=== PATIENT | female | born 1990 | race American Indian/Alaskan Native ===

== ENCOUNTER 2020-08-04 21:38 | Emergency (ER) | payer SELFPAY ==
[2020-08-04 23:17] VITALS: BP 140/84
--- NOTE | 2020-08-05 00:22 | Emergency Department Report ---
ED General Adult HPI - General Chief complaint: Urogenital-Female Stated complaint: RT BREAST SWELLING/BLOODY FLUID Source: patient Mode of arrival: Ambulatory Limitations: No Limitations - History of Present Illness Initial comments: Patient is a 29-year-old -[place] female with past medical history of hypertension who presents to the ED with complaint of acute onset persistent right breast pain around the areolar area with purulent discharge and mild erythematous maculopapular rash for the last 3 days. Patient states that the pain radiates to the right axilla persistently since the onset. Patient denies fever, chills, nausea, vomiting, dizziness, syncope, chest pain, shortness of breath, cough, sore throat, headache, traumatic injury, numbness and tingling or weakness of upper extremities bilaterally or back pain. MD Complaint: Right breast pain, swollen mild erythematous rash -: Sudden, days(s) (3) Location: chest (right breast) Radiation: non-radiation Severity scale (0 -10): 6 Quality: aching, sharp Consistency: constant Improves with: none Worsens with: none Associated Symptoms: denies other symptoms, rash (Mildly erythematous maculopapular rash on right breast areola). denies: confusion, chest pain, cough, diaphoresis, fever/chills, loss of appetite, malaise, nausea/vomiting, seizure, shortness of breath, syncope, weakness Treatments Prior to Arrival: none - Related Data Previous Rx's Medication Instructions Recorded Last Taken Type Ibuprofen [Motrin] 800 mg PO Q8HR PRN #30 tablet 08/05/20 Unknown Rx Sulfamethoxazole/Trimethoprim 1 each PO Q12H #20 tablet 08/05/20 Unknown Rx [Bactrim DS TAB] ED Review of Systems ROS: Stated complaint: RT BREAST SWELLING/BLOODY FLUID Other details as noted in HPI Constitutional: denies: chills, fever Eyes: denies: eye pain, eye discharge, vision change ENT: denies: ear pain, throat pain Respiratory: denies: cough, shortness of breath, wheezing Cardiovascular: other (Right breast pain due to erythematous maculopapular rash with purulent discharge). denies: chest pain, palpitations Endocrine: no symptoms reported Gastrointestinal: denies: abdominal pain, nausea, diarrhea Genitourinary: denies: urgency, dysuria, discharge Musculoskeletal: denies: back pain, joint swelling, arthralgia Skin: rash (Mild erythematous rash on right breast areola with purulent discharge). denies: lesions Neurological: denies: headache, weakness, paresthesias Psychiatric: denies: anxiety, depression Hematological/Lymphatic: denies: easy bleeding, easy bruising ED Past Medical Hx - Past Medical History Hx Hypertension: Yes - Surgical History Past Surgical History?: Yes Additional Surgical History: c-sect x2, fallopian and ovary removal, L knee x3. - Social History Smoking Status: Never Smoker Substance Use Type: None - Medications Home Medications: Home Medications Medication Instructions Recorded Confirmed Last Taken Type Ibuprofen [Motrin] 800 mg PO Q8HR PRN #30 tablet 08/05/20 Unknown Rx Sulfamethoxazole/Trimethoprim 1 each PO Q12H #20 tablet 08/05/20 Unknown Rx [Bactrim DS TAB] ED Physical Exam - General Limitations: No Limitations General appearance: alert, in no apparent distress - Head Head exam: Present: atraumatic, normocephalic, normal inspection - Eye Eye exam: Present: normal appearance, PERRL, EOMI Pupils: Present: normal accommodation - ENT ENT exam: Present: normal exam, normal orophraynx, mucous membranes moist, TM's normal bilaterally, normal external ear exam - Neck Neck exam: Present: normal inspection, full ROM - Respiratory Respiratory exam: Present: normal lung sounds bilaterally, chest wall tenderness (Palpable mild right breast tenderness due to mildly erythematous maculopapular nonfluctuant rash around the areola). Absent: respiratory distress, wheezes, rales, rhonchi, accessory muscle use, decreased breath sounds, prolonged expiratory - Cardiovascular Cardiovascular Exam: Present: regular rate, normal rhythm, normal heart sounds. Absent: systolic murmur, diastolic murmur, rubs, gallop - GI/Abdominal GI/Abdominal exam: Present: soft, normal bowel sounds. Absent: tenderness, guarding, hyperactive bowel sounds, hypoactive bowel sounds, organomegaly - Bi-manual exam: Present: other (Female RN chorus dancer Ms. Hart present during the breast exam; characterized by mildly erythematous and fluctuant maculopapular rash on right areola) - Extremities Exam Extremities exam: Present: normal inspection, full ROM, normal capillary refill - Back Exam Back exam: Present: normal inspection, full ROM. Absent: tenderness, CVA tenderness (R), CVA tenderness (L), muscle spasm, paraspinal tenderness, vertebral tenderness - Neurological Exam Neurological exam: Present: alert, oriented X3, CN II-XII intact, normal gait, reflexes normal - Psychiatric Psychiatric exam: Present: normal affect, normal mood - Skin Skin exam: Present: warm, dry, intact, rash (Mild erythematous maculopapular nonfluctuant rash on right areola with localized tenderness), erythema, other (Female RN chorus dancer Ms. Hart present during the breast exam) ED Course Vital Signs 08/04/20 23:05 Temperature 98.3 F Pulse Rate 95 H Respiratory 16 Rate Blood Pressure 140/84 O2 Sat by Pulse 100 Oximetry ED Medical Decision Making - Medical Decision Making This is a 29-year-old -[place] female with past medical history of hypertension who presents to the ED with complaint of acute onset persistent right breast pain around the areolar area with purulent discharge and mild er ythematous maculopapular rash for the last 3 days. Patient states that the pain radiates to the right axilla persistently since the onset. In the ED, patient is alert and oriented x3 and is not in any distress. Based on the history and physical exam findings, patient symptoms are likely due to mild cellulitis of the right breast versus fibrocystic breast disease. Patient was therefore discharged home on pain medications and empirically given a prescription of antibiotics for suspected cellulitis. Patient was advised return to the ED immediately if symptoms get worse, otherwise follow-up with her [facility] physician or primary care physician in 7 to 10 days for reevaluation. - Differential Diagnosis Cellulitis; mastitis; cutaneous abscess; fibrocystic breast disease Critical care attestation.: If time is entered above; I have spent that time in minutes in the direct care of this critically ill patient, excluding procedure time. ED Disposition Clinical Impression: Acute mastitis of right breast, Cellulitis of right breast Fibrocystic breast disease (FCBD) in female Qualifiers: Laterality: right Qualified Code(s): N60.11 - Diffuse cystic mastopathy of right breast Disposition: DC-01 TO HOME OR SELFCARE Is pt being admited?: No Does the pt Need Aspirin: No Condition: Stable Instructions: Breast Self-Awareness, [id number], Mastitis, [id number], Cellulitis, Adult, [id number], Fibrocystic Breast Changes, [id number] Additional Instructions: Take medications with food, drink plenty of fluids and follow up with your Primary Care Physician in 7-10 days for reevaluation. Return to the ED immediately if symptoms get worse. Prescriptions: Sulfamethoxazole/Trimethoprim [Bactrim DS TAB] 1 each PO Q12H #20 tablet Ibuprofen [Motrin] 800 mg PO Q8HR PRN #30 tablet PRN Reason: Pain , Severe (7-10) Referrals: [facility] [Provider Group] - 7-10 days Time of Disposition: 00:21 Print Language: CYMRAES
== END 2020-08-05 00:28 | disposition home or self-care (01) ==
LOC: ED 21:38
DX: N61.0 Mastitis without abscess (principal); N60.11 Diffuse cystic mastopathy of right breast; I10 Essential (primary) hypertension; Z98.890 Other specified postprocedural states; Z79.899 Other long term (current) drug therapy
CPT/HCPCS: 99282

== ENCOUNTER 2021-03-28 19:57 | Emergency (ER) | payer BC ==
--- NOTE | 2021-03-28 23:40 | Emergency Department Report ---
ED General Adult HPI - General Chief complaint: High BP Stated complaint: HYPERTENSION Time Seen by Provider: 03/28/21 23:26 Source: patient Mode of arrival: Ambulatory Limitations: No Limitations - History of Present Illness Initial comments: Patient is a 30-year-old female with a history of hypertension who presents for medication refill states has been out of her BP medicines for 2 months. Patient has primary care appointment for April 22 but is requesting refill today. His description of his hydrochlorothiazide patient states she felt symptoms today intermittent headache some dizziness as it is cervical symptoms when her blood pressure is elevated. BP today was 169/99. She denies dizziness, headache, shortness of breath, chest pain, nausea or vomiting. Patient denies other symptoms. Patient was seen [facility]UC[facility] SPECIALIST yesterday and advised to restart medications. - Related Data Previous Rx's Medication Instructions Recorded Last Taken Type Ibuprofen [Motrin] 800 mg PO Q8HR PRN #30 tablet 08/05/20 Unknown Rx Sulfamethoxazole/Trimethoprim 1 each PO Q12H #20 tablet 08/05/20 Unknown Rx [Bactrim DS TAB] hydroCHLOROthiazide [HCTZ] 25 mg PO QDAY #30 tablet 03/28/21 Unknown Rx Allergies Allergy/AdvReac Type Severity Reaction Status Date / Time CEFLA Allergy Mild Rash Uncoded 03/28/21 20:00 CEPHLASPORIN Allergy Rash Uncoded 03/28/21 20:00 ED Review of Systems ROS: Stated complaint: HYPERTENSION Other details as noted in HPI Constitutional: denies: chills, fever Eyes: denies: eye pain, eye discharge, vision change ENT: denies: ear pain, throat pain Respiratory: denies: cough, shortness of breath, wheezing Cardiovascular: denies: chest pain, palpitations Endocrine: no symptoms reported Gastrointestinal: denies: abdominal pain, nausea, vomiting, diarrhea Genitourinary: denies: urgency, dysuria, discharge Musculoskeletal: denies: back pain, joint swelling, arthralgia Skin: as per HPI Neurological: headache. denies: weakness, numbness, paresthesias, confusion, vertigo Psychiatric: denies: anxiety, depression Hematological/Lymphatic: denies: easy bleeding, easy bruising ED Past Medical Hx - Past Medical History Hx Hypertension: Yes - Surgical History Additional Surgical History: c-sect x2, fallopian and ovary removal, L knee x3. - Social History Smoking Status: Never Smoker Substance Use Type: None - Medications Home Medications: Home Medications Medication Instructions Recorded Confirmed Last Taken Type Ibuprofen [Motrin] 800 mg PO Q8HR PRN #30 tablet 08/05/20 Unknown Rx Sulfamethoxazole/Trimethoprim 1 each PO Q12H #20 tablet 08/05/20 Unknown Rx [Bactrim DS TAB] hydroCHLOROthiazide [HCTZ] 25 mg PO QDAY #30 tablet 03/28/21 Unknown Rx ED Physical Exam - General Limitations: No Limitations General appearance: alert, in no apparent distress - Head Head exam: Present: normocephalic, normal inspection - Eye Eye exam: Present: normal appearance, PERRL, EOMI Pupils: Present: normal accommodation - ENT ENT exam: Present: normal orophraynx, mucous membranes moist - Neck Neck exam: Present: normal inspection, full ROM. Absent: tenderness, lymphadenopathy, thyromegaly - Respiratory Respiratory exam: Present: normal lung sounds bilaterally. Absent: respiratory distress, wheezes, stridor - Cardiovascular Cardiovascular Exam: Present: regular rate, normal rhythm, normal heart sounds. Absent: systolic murmur, diastolic murmur, rubs, gallop - GI/Abdominal GI/Abdominal exam: Present: soft, normal bowel sounds. Absent: distended, te nderness - Rectal Rectal exam: Present: deferred - Extremities Exam Extremities exam: Present: normal inspection, full ROM, normal capillary refill. Absent: tenderness - Back Exam Back exam: Present: normal inspection. Absent: CVA tenderness (R), CVA tenderness (L) - Neurological Exam Neurological exam: Present: alert, oriented X3, CN II-XII intact, normal gait - Expanded Neurological Exam Expanded Patient oriented to: Present: person, place, time Speech: Present: fluid speech Motor strength exam: RUE: 5, LUE: 5, RLE: 5, LLE: 5 Best Eye Response (Ngoc): (4) open spontaneously Best Motor Response (Ngoc): (6) obeys commands Best Verbal Response (Ngoc): (5) oriented Ngoc Total: 15 - Psychiatric Psychiatric exam: Present: normal affect, normal mood - Skin Skin exam: Present: warm, dry, intact, normal color. Absent: rash ED Course Vital Signs 03/28/21 20:03 Temperature 99.8 F H Pulse Rate 85 Respiratory 18 Rate Blood Pressure 162/99 [Right] O2 Sat by Pulse 100 Oximetry ED Medical Decision Making - Medical Decision Making Repeat blood pressure 147/82. Heart rate 65 lungs are clear throughout there is no dizziness no lightheadedness no chest pain no shortness of breath no nausea or vomiting. Plan refill hydrochlorothiazide, follow-up with primary care doctor as scheduled. Return to emergency department should symptoms worsen. Patient verbalized agreement and understanding with discharge plan. Patient will be DC'd to home in stable condition at this time. Critical care attestation.: If time is entered above; I have spent that time in minutes in the direct care of this critically ill patient, excluding procedure time. ED Disposition Clinical Impression: Medication refill, Essential (primary) hypertension Disposition: 01 HOME / SELF CARE / HOMELESS Is pt being admited?: No Does the pt Need Aspirin: No Condition: Stable Instructions: Hypertension (ED), Managing Your Hypertension, DASH Eating Plan Additional Instructions: Take medications as prescribed, follow-up with your doctor as scheduled. Return to emergency department for symptoms worsen. Prescriptions: hydroCHLOROthiazide [HCTZ] 25 mg PO QDAY #30 tablet Referrals: PRIMARY CARE, [Primary Care Provider] - 3-5 Days Forms: Work/School Release Form(ED) Time of Disposition: 23:42
[2021-03-28 23:56] VITALS: BP 164/101
== END 2021-03-28 23:50 | disposition home or self-care (01) ==
LOC: ED 19:57
DX: I10 Essential (primary) hypertension (principal); Z76.0 Encounter for issue of repeat prescription; Z88.1 Allergy status to other antibiotic agents
CPT/HCPCS: 99282